=== PATIENT | female | born 1960 | race Caucasian/White ===

== ENCOUNTER 2016-09-21 06:16 | Day surgery (SDC) | payer OTHER ==
[2016-09-21] MEDS ORDERED: FENTANYL 100 MCG/2 ML VIAL ONE (06:25)
[2016-09-21] MEDS ORDERED: MIDAZOLAM HCL 1 MG/ML 2ML VIAL ONE (06:25)
[2016-09-21] MEDS ORDERED: CEFAZOLIN SODIUM 2 GRAM PREMIX 100 ML IV PRN (06:30)
[2016-09-21] MEDS ORDERED: LACTATED RINGERS 1,000 ML ONE (06:50)
[2016-09-21] MEDS ORDERED: IV START KIT ONE (06:50)
[2016-09-21] MEDS ORDERED: CEFAZOLIN SODIUM 2 GRAM PREMIX 100 ML IV ONE (06:51)
[2016-09-21] MEDS ORDERED: BUPIVACAINE 0.25% EPI PF 30 ML VIAL ONE ×2 (07:28)
[2016-09-21] MEDS ORDERED: MORPHINE SULFATE (DURAMORPH) 1 MG/ML 10ML AMP ONE (07:38)
[2016-09-21] MEDS ORDERED: KETOROLAC TROMETHAMINE 30 MG/ML 1 ML VIAL ONE (08:04)
[2016-09-21] MEDS ORDERED: ONDANSETRON 4 MG/2ML 2 ML VIAL ONE (08:05)
[2016-09-21] MEDS ORDERED: DEXAMETHASONE SOD PHOS 4 MG/1 ML VIAL ONE (08:05)
[2016-09-21] MEDS ORDERED: PROPOFOL 20 ML IV ONE (08:05)
[2016-09-21] MEDS ORDERED: LIDOCAINE 2% (PRES FREE) 5 ML VIAL ONE (08:05)
[2016-09-21] MEDS ORDERED: DIPHENHYDRAMINE HCL 50 MG/1 ML VIAL ONE (08:05)
[2016-09-21] MEDS ORDERED: FENTANYL 100 MCG/2 ML VIAL IV PRN (08:13)
[2016-09-21] MEDS ORDERED: PROMETHAZINE HCL 25 MG/ML VIAL IM PRN (08:13)
[2016-09-21] MEDS ORDERED: ONDANSETRON 4 MG/2ML 2 ML VIAL IV PRN ×2 (08:13→09:02)
[2016-09-21] MEDS ORDERED: HYDROMORPHONE HCL 1 MG/ML SYRINGE IV PRN ×2 (08:13→09:02)
[2016-09-21] MEDS ORDERED: NALOXONE HCL 0.4 MG/ML VIAL IV PRN (08:13)
[2016-09-21] MEDS ORDERED: ATROPINE SULFATE 0.4 MG/1 ML VIAL IV PRN (08:13)
[2016-09-21] MEDS ORDERED: LACTATED RINGERS 1,000 ML IV SCH (08:15)
--- NOTE | 2016-09-21 08:39 | PCMBPN ---
Brief Post Op Note: Date of Procedure: 09/21/16 Preoperative Diagnosis: right knee DJD with superimposed MMT Postoperative Diagnosis: 1. [Same] Procedure: scope/MM, debridement PF joint/ MFC Surgeon: Gary Shore MD Anesthesia: general (Tray) Condition: stable to PAR Complications: none IV Fluids: per anesthesia Estimated Blood Loss: nil Tourniquet Time: [N/A] Specimens: [N/A] Drains: [N/A]
[2016-09-21] MEDS ORDERED: SODIUM CHLORIDE 0.9% 1,000 ML IV SCH (09:02)
[2016-09-21] MEDS ORDERED: ACETAMINOPHEN 325 MG TABLET PO PRN (09:02)
[2016-09-21] MEDS ORDERED: HYDROCODONE/ACETAMINOPHEN 5/325MG TABLET PO PRN (09:02)
[2016-09-21] MEDS ORDERED: KETOROLAC TROMETHAMINE 30 MG/ML 1 ML VIAL IV PRN (09:02)
[2016-09-21] MEDS ORDERED: HYDROCODONE/ACETAMINOPHEN 5/325MG TABLET ONE (09:49)
--- NOTE | 2016-09-21 10:27 | HP ---
DATE OF CLINIC: 09/08/2016 NABOR ARCEO : 1960 PLANNED PROCEDURE: Right knee arthroscopic medial meniscectomy and debridement DATE OF PROCEDURE: September 21, 2016 SURGEON: Dr. Gary Shore MD PCP: Dr. Abhijeet Strange HISTORY OF PRESENT ILLNESS Nabor Arceo is a 56 year old female. * Medication list reviewed with patient allergy list reviewed with patient. * Tried Injections 1 cortisone injection 1 year ago that lasted about 2 weeks * Has not tried NSAIDS * Has not tried Physical Therapy Mrs. Arceo is in today pre-operatively for her upcoming right knee arthroscopy with Dr. Shore on 09/21/16. Patient presents in good spirits and is ready to proceed. She denies recent illness, change in health. Patient did have one historical incidence of DVT of unknown cause. No prior surgical complications. Her recent consult with Dr. Shore follows: 55-year-old female here for a 2nd opinion with respect to chronic progressive right knee pain. She has previously seen Dr. Black for this. She describes her pain as aching medial discomfort with sharp overlay. She does have discomfort at night. She has difficulty with loaded flexion and torsion activities, which seem to exacerbate the sharp catching sensation. She has no radicular symptoms. No specific injury. She denies hip pain. Dr. Black's notes are available. She has had previous intraarticular corticosteroid with temporary improvement. She wonders about my thoughts with respect to a treatment algorithm. Comorbidities include hypertension. She also struggles with obesity, although has been losing some weight. Today she is 255 pounds with a BMI of 38.8. In addition, she is under quite a bit of stress as she has an adult son who was diagnosed with a congenital heart problem and is on a transplant list. PAST MEDICAL/SURGICAL HISTORY Reported: Medical: Hypertension controlled with medication. Surgical / Procedural: Prior surgery Pin in Left foot 12/03/2002. SOCIAL HISTORY Behavioral: Smoking status: Never smoker. REVIEW OF SYSTEMS Systemic: No fever and no recent weight change. Head: No head symptoms. Cardiovascular: No cardiovascular symptoms. Pulmonary: No pulmonary symptoms. Gastrointestinal: No gastrointestinal symptoms. Psychological: No psychological symptoms. Skin: No skin lesions and no rash. PHYSICAL FINDINGS * Vitals taken 09/08/2016 11:10 am BP-Sitting L 112/68 mmHg 100 - 120/56 - 80 BP Cuff Size Regular Pulse Rate-Sitting 71 bpm 50 - 100 Temp-Oral 97.5 F 96 - 101 Height 68 in 59 - 69 Weight 257 lbs 98 - 183 Body Mass Index 39.1 kg/m2 Body Surface Area 2.27 m2 Pain Level 4 Ears, Nose, Throat: * ENT: normal. Lungs: * Clear to auscultation. Cardiovascular: Heart Rate And Rhythm: * Normal. Abdomen: * Normal. Neurological: Motor: * Dominant Hand = Right Hand. Patient is an obese female in no acute distress, normal-appearing mood and affect. She has a stiff-legged, antalgic gait, worse at startup. Right knee exam shows skin integrity to be well-preserved, no wounds, rashes or lesions. Mild diffuse swelling, no gross effusion. Motion is 0-110 degrees passively, actively she has no extensor lag. She is tender medial greater than lateral, fairly diffuse. She is also tender over the anteromedial proximal tibia. Ligamentous exam is intact for cruciates and collaterals. Her alignment is neutral. Calf is soft and NT. Distal light touch sensation and motor function are grossly intact and symmetric. Pulses are palpable. Gentle rotation of the hip is nonirritable. Contralateral knee shows normal alignment, mild medial greater than lateral discomfort. No swelling or effusion. Motion 0-115 degrees. Normal ligamentous exam. TESTS 4 views of the right knee from 05/26/16 show moderate medial narrowing with slight irregularity. She has marginal spurring at both the medial and lateral compartment particularly in the notch. Also superior spurring of the patellofemoral articulation of the patella and trochlea. This is well aligned. Patient had a previous MRI scan that is available for my review from 01/21/16. This is from [facility] and consistent with a horizontal tear of the medial meniscus with extension to the posterior horn and body. 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 ASSESSMENT * Acute complex tear of medial meniscus Degenerative disease, right knee, with superimposed medial meniscal tear, chronic. THERAPY * Patient not eligible for fall risk assessment. PLAN * Arthroscopy of the knee with medial meniscectomy -Right and debridement Discussed with patient in detail the limitations, expectations as well as risks and possible complications of surgery including, but not limited to wound problems or infection, neurovascular injury, continued knee pain or dysfunction including the possibility of failure over time that may require additional operative or nonoperative treatment. Patient also realizes the perioperative risks including risks associated with anesthesia and would like to proceed. A full PAR conference was held, questions and concerns addressed and informed consent was obtained. Patient will be sent from my office for completion of the preoperative workup. CARE TEAM Abhijeet Strange DO Family Practice CC: Abhijeet Strange DO Family Practice RS/sg
--- NOTE | 2016-09-22 09:50 | OP ---
NABOR MAHAN [id number] : 1960 DATE OF SURGERY: September 21, 2016 PREOPERATIVE DIAGNOSIS: Right knee DJD with superimposed medial meniscal tear. POSTOPERATIVE DIAGNOSIS: Right knee DJD with superimposed medial meniscal tear. PROCEDURE: 1. Right knee arthroscopic partial medial meniscectomy. 2. Arthroscopic debridement/chondroplasty patellofemoral joint and medial femoral condyle. SURGEON: Gary Shore M.D. ESTIMATED BLOOD LOSS: Minimal ANESTHESIA: General per Tray FLUIDS: IV replacement per anesthesia. TOURNIQUET TIME: Zero DRAINS: None COMPLICATIONS: None INDICATION: Patient is a 56-year-old female with clinical and radiographic history most consistent with right knee DJD with superimposed medial meniscal tear. They have failed to improve with traditional nonoperative treatments and would like to proceed with elective arthroscopic evaluation and treatment. PAR conference was held, questions and concerns were addressed, and informed consent was obtained. For additional details, please refer to the previously dictated preoperative History and Physical Exam. OPERATIVE FINDINGS: A complete diagnostic knee arthroscopy was performed with the following findings: The suprapatellar pouch was clean. Patellofemoral joint showed grade II-B changes fairly diffusely of the median ridge extending over the lateral facet. There was an unstable kissing lesion mid-trochlear groove extending deeper into flexion as well. On the trochlea focally anteromedially on the condyle there was an area of near full thickness loss. Medial and lateral gutters were clean. Medial compartment had significant changes of grade II-B diffusely as well as grade III centrally in the femoral condyle, grade I kissing lesion central portion of the medial tibial plateau. The meniscus showed extensive degenerative tearing from the root around to the 3:00 position with multiple flaps. Notch was narrowed, ACL was intact. The lateral compartment was normal. PROCEDURAL DESCRIPTION: Patient was taken to the operating room. General anesthesia was induced and a laryngeal masked airway was placed. The lower extremity was prepped and draped out in the usual sterile fashion. Examination under anesthesia was normal with the exception of a few degree fixed flexion contracture. After sterile prep and drape the knee was injected with 45 mL of 0.25% Marcaine with epinephrine. A medial suprapatellar and lateral peripatellar portal were initially established followed by a medial peripatellar portal under direct intraarticular visualization. A standard 4.0 mm 30 degree arthroscope was used. An arthroscopic pump system was utilized. A photographic record was made. A complete diagnostic knee arthroscopy was then performed with findings as discussed above. We turned our attention initially to the medial compartment. A combination of arthroscopic shuts and a 3.5 shaver were used to debride the tear back to a stable base smoothing the transition zone medially into the body of the meniscus. We then debrided the unstable areas of the medial femoral condyle with a 3.5 shaver and evacuated the medial compartment of debris. The scope was then passed into the patellofemoral articulation and we debrided the fairly extensive unstable areas of the trochlea and patella. Satisfied, after copious irrigation we removed the cannulas and closed the portal sites with interrupted 4-0 Nylon. The knee was injected with an additional 15 mL of 0.25% Marcaine with epinephrine plus 5mg of intraarticular Morphine. A sterile compression wrap was applied. The patient was then awakened, extubated, transferred to their hospital bed and sent to post anesthesia recovery in stable condition. The patient tolerated the procedure well. Sponge, instrument and needle count were correct. FARIDA/w CC: Cierra Strange DO
== END 2016-09-21 10:49 | disposition home or self-care (01) ==
LOC: SDC 06:16
PROVIDERS: ATTEND Orthopaedic Surgery
DX: S83.241A Other tear of medial meniscus, current injury, right knee, initial encounter (principal); I10 Essential (primary) hypertension; J45.909 Unspecified asthma, uncomplicated
CPT/HCPCS: 29881; J1200; J3010; J1100; J2274; J1885; J2250; J2405; J7120; A9270; J0690